=== PATIENT | male | born 1990 | race Caucasian/White ===

== ENCOUNTER 2017-03-04 14:02 | Emergency (ER) | payer SELFPAY ==
[~2017-03-04 14:02] MED LIST: BENZONATATE PO; IBUPROFEN PO; IBUPROFEN800 MG PO; LORTAB 5/500 TA1 TA1 PO; MOTRIN400 MG PO; NO MEDICATIONS; TYLENOL #3 PO; VOLTAREN75 MG PO
== END 2017-03-04 14:21 | disposition home or self-care (01) ==
LOC: SED 14:02
DX: J02.9 Acute pharyngitis, unspecified (principal); F17.210 Nicotine dependence, cigarettes, uncomplicated
CPT/HCPCS: 87651; 99282